=== PATIENT | female | born 1990 | race Caucasian/White ===

== ENCOUNTER 2019-08-09 19:16 | Emergency (ER) | payer OTHER ==
[~2019-08-09] VITALS: Ht 162.6 cm; Wt 79.0 kg
[2019-08-09] MEDS ORDERED: ASPIRIN 81 MG TABLET CHEW ONE (19:49)
[2019-08-09 19:54] LABS: BASOPHILS # (AUTO) 0.05 x10^3/uL (0-0.1); BASOPHILS % (AUTO) 1 % (0-1); EOSINOPHILS # (AUTO) 0.22 x10^3/uL (0-0.4); EOSINOPHILS % (AUTO) 3 % (1-7); LYMPHOCYTES # (AUTO) 1.68 x10^3/uL (1-3.4); LYMPHOCYTES % (AUTO) 19 % (22-44); MD NO; MEAN CORPUSCULAR HEMOGLOBIN 28.7 pg (27.0-34.8); MEAN CORPUSCULAR HGB CONC 33.3 g/dL (32.4-35.8); MEAN CORPUSCULAR VOLUME 86.1 fL (80-100); MEAN PLATELET VOLUME 8.5 fL (7.4-10.4); MONOCYTES # (AUTO) 0.74 x10^3/uL (0.2-0.8); MONOCYTES % (AUTO) 8 % (2-9); NEUTROPHILS # (AUTO) 6.08 x10^3/uL (1.8-6.8); NEUTROPHILS % (AUTO) 69 % (42-75); PLATELET COUNT 298 x10^3/uL (130-400); RED BLOOD COUNT 4.91 x10^6/uL (3.82-5.3); RED CELL DISTRIBUTION WIDTH 13.1 % (9.6-15.2)
[2019-08-09] MEDS ORDERED: MORPHINE SULFATE 4 MG/ML, 1ML IVPush PRN (20:00)
[2019-08-09] MEDS ORDERED: SODIUM CHLORIDE FLUSH 10ML SYR IVF ONE (20:00)
[2019-08-09] MEDS ORDERED: ONDANSETRON 2MG/ML, 2ML IVPush ONE (20:00)
[2019-08-09] MEDS ORDERED: ONDANSETRON 2MG/ML, 2ML ONE (20:03)
[2019-08-09] MEDS ORDERED: MORPHINE SULFATE 4 MG/ML, 1ML ONE (20:03)
[2019-08-09 20:04] LABS: ALANINE AMINOTRANSFERASE 34 U/L (12-78); ALBUMIN 3.8 g/dL (3.4-5.0); ANION GAP 5 mmol/L (5-15); CALCIUM 8.3 mg/dL (8.5-10.1); CHLORIDE 108 mmol/L (98-107); CREATININE 0.58 mg/dL (0.55-1.02)
[2019-08-09 20:08] LABS: ALKALINE PHOSPHATASE 54 U/L (45-117); BILIRUBIN,TOTAL 0.7 mg/dL (0.2-1.0); TOTAL PROTEIN 7.4 g/dL (6.4-8.2)
--- NOTE | 2019-08-09 20:18 | NUR ---
Jada virk in [facility] - 08/09/19 at 2018 by CONNOR Patient ambua
--- NOTE | 2019-08-09 20:18 | NUR ---
Patient ambulated into room and changed into gown. Patient report had just been seen at urgent care. Also reports history of gallbladder and gallstones. Provider to bedside, orders placed. Patient educated on need for urinalysis. Reviewed clean catch instructions. Patient verbalized understanding. Returned to room with sample cup. RN to bedside with pain medication, iv started per protocol and medications administered (see eMAR) Ultrasound to bedside at the moment. Will update vitals on completion of imaging.
[2019-08-09 20:24] LABS: CULTURE INDICATED? NO; MICROSCOPIC NOT IND
[2019-08-09 20:36] VITALS: BP 101/57
--- NOTE | 2019-08-09 20:56 | NUR ---
Ultrasound complete, patient informed that read of ultrasound dependent on plan of care. Also additional abdominal xray ordered. Patient out of room to imaging.
--- NOTE | 2019-08-09 21:27 | NUR ---
Updated patient that provider had informed park interpreter was imminent. Patient agreeable. Removed IV per protocol. Awaiting discharge paperwork and updated information from provider.
--- NOTE | 2019-08-09 21:54 | NUR ---
RN again to bedside, patient asking for update on medical discharge paperwork to include a general surgery referral. Updated paperwork, and patient signed paperwork. Patient ambulated steadily to discharge desk with all belongings.
== END 2019-08-09 21:57 ==
LOC: ED 21:21
DX: K52.9 Noninfective gastroenteritis and colitis, unspecified (principal)
CPT/HCPCS: 36415; 74021; 76700; 80053; 81003; 83690; 84703; 85025; 96374; 96375; 99284; J2270; J2405